=== PATIENT | female | born 1965 | race Caucasian/White ===

== ENCOUNTER 2018-04-15 12:31 | Emergency (ER) | payer OTHER ==
[2018-04-15 12:49] VITALS: BP 105/58; PULSE 98; TEMP 98.5; BMI 21.8
--- NOTE | 2018-04-15 13:44 | PDOC ---
History of Present Illness - General Chief Complaint: Pain Stated Complaint: ABD PAIN Time Seen by Provider: 04/15/18 13:07 - History of Present Illness Initial Comments: 04/15/18 13:43 52-year-old female with an extensive psych history diagnosis of bipolar on multiple antipsychotic meds presents for evaluation of left inguinal pain times one week. She states she was diagnosed with a hernia and is not sure what to do from this point she also states she is constipated and has not had a bowel movement 5 days. She has no other associated symptoms. Past History - Past Medical History Allergies/Adverse Reactions: Allergies Allergy/AdvReac Type Severity Reaction Status Date / Time nisoldipine [From Sular] Allergy Verified 04/15/18 12:45 Home Medications: Ambulatory Orders Unobtainable 04/15/18 COPD: No - Suicide/Smoking/Psychosocial Hx Smoking History: Current every day smoker Number of Cigarettes Smoked Daily: 10 Information on smoking cessation initiated: Yes 'Breaking Loose' booklet given: 04/15/18 Hx Alcohol Use: No Drug/Substance Use Hx: No Review of Systems - Review of Systems ABD/GI: Yes: See HPI, Constipated All Other Systems: Reviewed and Negative *Physical Exam - Vital Signs Last Vital Signs Temp Pulse Resp BP Pulse Ox 98.5 F 98 H 18 105/58 L 99 04/15/18 12:45 04/15/18 12:45 04/15/18 12:45 04/15/18 12:45 04/15/18 12:45 - Physical Exam Comments: 04/15/18 13:43 HEAD: NC/AT EYES: Conjuntiva clear Ears: Canals and TM's normal NOSE: No d/c THROAT: Moist mucous membrances, oral pharanx clear, uvula midline NECK: Supple without adenopathy CARDIAC: S1 S2 LUNGS: CTA Full and Equal breath sounds ABDOMEN: Soft NT ND, there is no hernia appreciated, bowel sounds are hypoactive but present. MS: Full ROM in all joints without edema NEUROLOGIC: No gross sensory or motor deficits, NVID SKIN: Normal color and temperature no lesions or rashes Medical Decision Making - Medical Decision Making 04/15/18 13:44 We'll treat with an enema and have her follow-up with general surgery 04/15/18 14:07 Refile after BM s/p fleet enema *DC/Admit/Observation/Transfer Diagnosis at time of Disposition: Acute constipation - Discharge Dispostion Disposition: HOME Condition at time of disposition: Improved Decision to Admit order: No - Referrals Referrals: Adelaida Contreras MD [Primary Care Provider] - Rakesh Willis MD [Staff Physician] - - Patient Instructions Printed Discharge Instructions: DI for Constipation Additional Instructions: Return to the emergency room should symptoms worsen or go unresolved. Please follow-up with your primary care doctor in one to 2 days for further evaluation and treatment options. I given you a referral to a general surgeon who can help you with the hernia should follow-up with a general surgeon one to 2 days. He may take Colace as directed for constipation and eat a high-fiber diet and drink plenty of water for treatment of the symptoms. - Post Discharge Activity
== END 2018-04-15 14:14 | disposition home or self-care (01) ==
LOC: JERFT 12:31
DX: J02.9 Acute pharyngitis, unspecified (principal)
CPT/HCPCS: 99281-25